=== PATIENT | female | born 1990 | race Caucasian/White ===

== ENCOUNTER → 2017-09-13 | Day surgery (SDC) | payer BC ==
[~2017-09-13] VITALS: Ht 167.6 cm; Wt 87.3 kg
[~2017-09-13] MED LIST: CHLORHEXIDINE GLUCONATE 2 % 1 PACK (2 CLOTHS) TOPICAL PRN; DEXAMETHASONE SOD PHOS 4 MG/ML VIAL IV ONE; DO NOT ADM ANY ANTICOAGULANT DRUGS PRN; ESTROGENS CONJUGATED VAG CREA 15 APPL/30 GM TUBE ONE; KETOROLAC TROMETHAMINE 30 MG/ML (IVP) VIAL IV PUSH ONE; LACTATED RINGER'S 1000 ML IV PRN; LIDOCAINE HCL 1% PF 5 ML SYRINGE OTHER ONE; MEPERIDINE HCL 25 MG/ML VIAL IV PRN; METHYLERGONOVINE MALEATE 0.2 MG/ML VIAL ONE; METOPROLOL TARTRATE 25 MG TAB PO PRN; ONDANSETRON HCL 4 MG/2 ML VIAL IV PRN; ONDANSETRON HCL 4 MG/2 ML VIAL IV PUSH ONE; OXYTOCIN 10 UNIT/ML AMP ONE; POVIDONE IODINE 5% (ANTISEPSIS KIT) 4 APPLICATIONS EACH NARE PRN; PREN29TA PO; PROPOFOL 200 MG/20 ML AMP IV ONE; SODIUM CHLORID 0.9% 500 ML IV PRN; ceFAZolin 2 GM PREMIX 50 ML IV ONE; oxyCODONE/ACETAMINOPHEN 5 MG/325 MG TAB PO PRN
[2017-09-13 11:01] LABS: AUTOMATED NEUTROPHIL # 5.4 TH/MM3 (1.8-7.7); BASOPHIL % 0.5 % (0.0-2.0); EOSINOPHIL # 0.1 TH/MM3 (0-0.4); EOSINOPHIL % 1.6 % (0.0-4.0); HEMATOCRIT 40.4 % (35.0-46.0); HEMO FLAGS DIFF FINAL; LYMPH % 32.2 % (9.0-44.0); LYMPHOCYTE # 2.9 TH/MM3 (1.0-4.8); MEAN CELL VOLUME 90.3 FL (80.0-100.0); MEAN CORPUSCULAR HEMOGLOBIN 29.3 PG (27.0-34.0); MEAN CORPUSCULAR HGB CONC 32.5 % (32.0-36.0); MONO % 6.1 % (0.0-8.0); NEUT % 59.6 % (16.0-70.0); PLATELET COUNT 227 TH/MM3 (150-450); RED BLOOD COUNT 4.47 MIL/MM3 (4.00-5.30); RED CELL DISTRIBUTION WIDTH 13.9 % (11.6-17.2)
[2017-09-13 11:06] LABS: BACTERIA, URINE RARE /hpf; BLOOD, URINE SMALL (NEG); GLUCOSE,URINE NEG (NEG); KETONE, URINE NEG (NEG); MUCUS URINE FEW /lpf (OCC); NITRITE,URINE NEG (NEG); SQUAMOUS EPITHELIAL CELL URINE 6 /hpf (0-5); URINE COLOR YELLOW (YELLW/STRAW)
[2017-09-13 11:09] LABS: COMMENT (UR) CULT NOT INDICATED; CULTURE IF INDICATED CULT NOT INDICATED
--- NOTE | 2017-09-13 12:23 | MH ---
cc: HORACIO TANNER DATE OF ADMISSION: 09/13/2017 DATE OF 1990 SCHEDULED PROCEDURE D&C. HISTORY OF PRESENT CONDITION The patient is a 26-year-old white female, 4, para 1-0-2-1 with LMP 06/10/2017 and EDC 03/21/2018, who came in at 13 weeks for a new OB and for whom the ultrasound indicated that she had a missed AB of 8 weeks 2 days sizing, suggested that the heart rate stopped a good month ago. She had not yet been having any spotting and this was a terrible surprise to her and her and she was quite devastated. It is particularly sad because after her first child in 2013 she had an ectopic in 2014 and a molar in 2016. They have just moved here from [place] and live here full-time now. Her blood type is A+. Her hemoglobin is 12.5. She is immune to [place]ese measles and chickenpox. Cultures were negative. She has had no fevers or exposures that could account for her loss, no food poisoning. She does not smoke, drink or use illicit drugs. Her first child was term and in good health and her general health is excellent. PAST MEDICAL HISTORY She has no chronic or systemic illnesses. PAST SURGICAL HISTORY She did have surgery for her ectopic removal and that tube was also removed and she also had D&C for her molar . SOCIAL HISTORY Her is an Jain Rabbi and they live in the [facility]. PHYSICAL EXAMINATION VITAL SIGNS: On physical exam her weight is 194, blood pressure is 130/72. NECK: She has no thyroid enlargement. LUNGS: Lungs are clear. HEART: Heart is regular. ABDOMEN: Benign. PELVIC: Perineum is estrogenized and cervical length on ultrasound is 3.85, crown-rump length of the embryo was 1.85 consistent with 8 weeks 2 days. Ovaries and adnexa were normal. IMPRESSION Missed AB. PLAN Plan is to proceed with D&C. Risks, benefits, expectations and alternatives have been described in detail and she is scheduled for morning. Horacio Tanner MD PPC/TLL /1:41 PM /11:52 AM
[2017-09-13 13:50] VITALS: BP 96/53; PULSE 60; RESP 20; TEMP 98; O2SAT 99
--- NOTE | 2017-09-13 14:11 | HHI.DCPOC ---
Discharge Care Plan Report Symptoms to Your Doctor -Temperature above 100.5 degrees -Redness, of incision or excessive or foul smelling drainage -Unusual pain or calf pain -Increased vaginal bleeding -Painful or difficulty urinating -Feelings of extreme sadness or anxiety after 2 weeks Goals to Promote Your Health * To prevent worsening of your condition and complications * To maintain your health at the optimal level Directions to Meet Your Goals Take your medications as prescribed Follow your dietary instruction Follow activity as directed Ensure plenty of rest for recovery Drink fluids for hydration Keep your appointments as scheduled Take your immunizations and boosters as scheduled If your symptoms worsen call your PCP, if no PCP go to Urgent Care Center or Emergency Room Smoking is Dangerous to Your Health. Avoid second hand smoke Call the 24-hour crisis hotline for domestic abuse at Katherine Mendoza MD Sep 13, 2017 14:11
--- NOTE | 2017-09-15 11:48 | MP ---
cc: KATHERINE TANNER DATE OF SURGERY: 09/13/2017 PREOPERATIVE DIAGNOSIS: Missed . POSTOPERATIVE DIAGNOSIS: Missed . OPERATION: Suction curettage. ANESTHESIA: General. SURGEON: MD Kelly. FINDINGS Moderate products of conception. PROCEDURE The patient was identified as Jennifer the circumstances and procedure reviewed. She was taken to the operating room, placed under general endotracheal anesthesia in the dorsal lithotomy position. She was prepped and draped in the usual sterile fashion and a time-out was performed. She has had 2 grams of Ancef IV. Examination under anesthesia was performed and a weighted speculum was placed. The cervix was grasped with tenaculum and a size eight curved suction curette entered into the intrauterine cavity with a significant amount of tissue obtained. Bleeding was average and a banjo curette was used at the end to confirm that the 360 degrees of the intrauterine cavity felt clean. The vaginal instrumentation was removed. She was placed in dorsal supine position, awoken and taken to the recovery room in stable condition. She is Rh positive. Katherine Tanner MD PPC/ /2:06 PM /10:40 AM
== END | disposition home or self-care (01) ==
LOC: HSDC 09:50
PROVIDERS: ATTEND Obstetrics & Gynecology
DX: O02.1 Missed abortion (principal)
CPT/HCPCS: 01965; 59820; 81001; 85025; 86850; 86900; 86901; 88305; J0690; J1100; J1885; J2210; J2405; J2590

== ENCOUNTER 2018-09-12 02:21 | Inpatient (IN) ==
[2018-09-12] MEDS ORDERED: Sod Chloride 0.9% Inj 1,000 ML IV.CONT PRN (02:37)
[2018-09-12] MEDS ORDERED: Oxytocin 30 Units/500ml Premix 30 UNITS/500 ML BAG IV.SIG ONE (02:37)
[2018-09-12] MEDS ORDERED: Naloxone Inj 0.4 MG/ML Vial IV.PUSH PRN ×2 (02:37→08:33)
[2018-09-12] MEDS ORDERED: Sodium Chlor 0.9% Inj 500 ML IV.SIG PRN (02:37)
[2018-09-12] MEDS ORDERED: Penicillin G Potassium Inj 5,000,000 UNIT in Sodium Chloride 0.9% Inj 100 ML IV.SIG ONE (02:37)
[2018-09-12] MEDS ORDERED: fentaNYL Citrate Inj 100 MCG/2 ML Ampul IV.PUSH PRN ×2 (02:37)
[2018-09-12] MEDS ORDERED: Citric Acid/Sodium Citrate Liq 30 ML UDC PO SCH (02:45)
--- NOTE | 2018-09-12 03:05 | P.HPOB ---
Patient Name: Jennifer Hernandez Date of : 89 Patient Status: Inpatient Attending Provider: Hiram Gomez Date: 09/12/18 02:46 Initialization Date: 09/12/18 02:46 History of Present Illness Service: [facility] [place] Primary Care Physician: NOT REQUIRED Dary Mendoza MD Chief Complaint: Contractions History of Present Illness: This 27 y/o female , EDC 09/11/18, EGA 40 1/7 wks presents to [facility] with c /o ctxs. She has been having ctxs since last week but they became stronger approx 12:10 AM today. She denies probs with this . She was 3-4 cm on her last exam. Today she is 5/80/-2, vtx. She will be admitted in labor. Weeks Gestation:: 40 Para: 1 : 5 Review of Systems All other systems reviewed negative except as stated in HPI PMFSH - Medical / Surgical Hx Neg / Unobtainable Medical Problems Denied: Yes - Medical History Medical History: Medical History (Last Updated 09/12/18 @ 02:56 by Dia Whitlock DO) History of molar Hx of ectopic - Surgical History Surgical History: Surgical History (Last Updated 09/12/18 @ 02:56 by Dia Whitlock DO) History of laparoscopy Hx of dilation and curettage - Social History I have reviewed the patient's Social History: Yes - Tobacco History Tobacco Use In Past 30 Days: No Smoking Status: Never smoker - Alcohol History How Often Do You Have a Drink Containing Alcohol: Never - Substance Use History Substance History: No History of Abuse - Travel History History of Recent Travel: No Recent Travel in the [place] Within the Last 8 Weeks: No Recent Travel Out of the Country Within the Last 8 Weeks: No Medications and Allergies Active Medications: Active Medications Citric Acid/Sodium Citrate (Sodium Citrate/Citric Acid Liq) 30 ml PO [facility] [facility] [facility] Stop: 09/16/18 02:44 Fentanyl Citrate (Fentanyl Inj) 50 mcg IV.PUSH Q1H PRN PRN Reason: Pain Scale 3 - 5 Fentanyl Citrate (Fentanyl Inj) 100 mcg IV.PUSH Q1H PRN PRN Reason: PAIN SCALE 6 TO 10 Lactated Ringer's (Lr 1000 Ml Inj) 1,000 mls @ 3,000 mls/hr IV.SIG UNSCH PRN PRN Reason: compromise or epidural Lactated Ringer's (Lr 1000 Ml Inj) 1,000 mls @ 125 mls/hr IV.CONT .Q8H MILEY Sodium Chloride (Ns Inj) 500 mls @ 1,000 mls/hr IV.SIG UNSCH PRN PRN Reason: SEE LABEL COMMENTS Sodium Chloride (Ns Inj) 1,000 mls @ 100 mls/hr IV.CONT .Q10H PRN PRN Reason: SEE LABEL COMMENTS Oxytocin (Pitocin 30 Units/Ns 500 Ml Premix) 30 units in 500 mls @ 999 mls/hr IV.SIG BOLUS ONE Stop: 09/12/18 03:07 Penicillin G Potassium 5,000, (000 unit/ Sodium Chloride) 100 mls @ 200 mls/hr IV.SIG ONCE ONE Stop: 09/12/18 03:06 Penicillin G Potassium 2,500, (000 unit/ Sodium Chloride) 100 mls @ 200 mls/hr IV.SIG Q4H MILEY Lidocaine HCl (Xylocaine 1% Inj) 0.1 ml I-DERMAL PRN PRN PRN Reason: For IV start Stop: 09/15/18 02:36 Lidocaine HCl (Xylocaine 1% Inj) 10 ml INFILTRATN PRN PRN PRN Reason: For episiotomy repair Stop: 09/14/18 02:36 Mineral Oil (Muri-Lube Oil) 10 ml TOPICAL PRN PRN PRN Reason: PRN perineal massage Mineral Oil (Muri-Lube Oil) 10 ml TOPICAL PRN PRN PRN Reason: PRN perineal massage Naloxone HCl (Narcan Inj) 0.1 mg IV.PUSH Q2M PRN PRN Reason: for opiate reversal Allergies Allergy/AdvReac Type Severity Reaction Status Date / Time No Known Allergies Allergy Unverified 09/13/17 10:13 Home Medications Medication Instructions Recorded Confirmed Type 09/12/18 History Exam Vital signs: Vital Signs 09/12/18 02:36 Respiratory Rate 16 Narrative: GENERAL: Well-nourished, well-developed patient. SKIN: Warm and dry. HEAD: Normocephalic and atraumatic. EYES: No scleral icterus. No injection or drainage. ENT: No nasal drainage noted. Mucous membranes pink. Airway patent. NECK: Supple, trachea midline. No JVD. CARDIOVASCULAR: Regular rate and rhythm without murmurs, gallops, or rubs. RESPIRATORY: Breath sounds equal bilaterally. No accessory muscle use. BREASTS: Bilateral exam showed no masses , no retractions, no nipple discharge. ABDOMEN/GI: Abdomen soft, non-tender, bowel sounds present, no rebound, no guarding Gravid to [40] weeks size GENITOURINARY: External Genitalia: intact and normal in appearance Cervix: Dilatation: [5] Effacement: [80] Station: [-2] Presentation: [vtx] Membranes: [intact] Uterine Contractions: [every 2-3 min] FHT's: Category: [1] Baseline: [140] Reactive: [Yes] Variability: [moderate] Decels: [No] +Accels EXTREMITIES: No cyanosis or edema. BACK: Nontender without obvious deformity. No CVA tenderness. NEUROLOGICAL: Awake and alert. Motor and sensory grossly within normal limits. Five out of 5 muscle strength in all muscle groups. Normal speech. Results - Labs Group B Strep: Positive Assessment and Plan - Diagnosis (1) Active labor at term Status: Acute (2) Uterine contractions during Code(s): O62.2 - Other uterine inertia Status: Acute (3) Group B streptococcal infection during Code(s): O98.819 - Other maternal infectious and parasitic diseases complicating , unspecified trimester; B95.1 - Streptococcus, group B, as the cause of diseases classified elsewhere Status: Acute (4) 40 weeks gestation of Code(s): Z3A.40 - 40 weeks gestation of Status: Acute - Plan Admit pt in labor. Penicillin for GBS Positive. Message left for Dr. Gomez who is hone operator for Dr. Mendoza. Discharge Plan - Discharge Disposition Patient Disposition: ED Admit(ED Internal Use Only) - Physicians Team ED Provider: Dia Whitlock Primary Care Provider: NOT REQUIRED,
[2018-09-12 03:07] LABS: Baso # (Auto) 0.1 th/mm3 (0.0-0.2); Baso % (Auto) 0.4 % (0.0-2.0); Eos # (Auto) 0.1 th/mm3 (0.0-0.4); Eos % (Auto) 0.5 % (0.0-4.0); Hematocrit 39.6 % (35.0-46.0); Hemoglobin 13.6 gm/dL (11.6-15.3); Lymph # (Auto) 2.8 th/mm3 (1.0-4.8); Mean Corpuscular HGB Conc 34.3 % (32.0-36.0); Mean Corpuscular Volume 90.5 fL (80.0-100.0); Mean Platelet Volume 9.9 fL (7.0-11.0); Mono % (Auto) 6.9 % (0.0-8.0); Neut % (Auto) 72.2 % (16.0-70.0); Platelet Count 175 th/mm3 (150-450); Red Blood Count 4.38 mil/mm3 (4.00-5.30); White Blood Count 13.8 th/mm3 (4.0-11.0)
[2018-09-12 04:16] LABS: Amorphous Sediment,Urine Rare /hpf; Bilirubin,Urine Negative (Negative); Clarity,Urine Cloudy (Clear); Color,Urine Amber (Yellw/Straw); Glucose,Urine (UA) Negative (Negative); Leukocyte Esterase,Urine Trace (Negative); Mucus,Urine Few /lpf (Occasional); Nitrite,Urine Negative (Negative); Specific Gravity,Urine 1.021 (1.002-1.035); Squamous Epithelial Cell,Urine 3 /hpf (0-5)
[2018-09-12] MEDS ORDERED: Penicillin G Potassium Inj 2,500,000 UNIT in Sodium Chlor 0.9% Inj 100 ML IV.SIG SCH (06:45)
[2018-09-12] MEDS ORDERED: Bisacodyl 10 MG Supp RECTAL PRN (08:33)
[2018-09-12] MEDS ORDERED: Benzocaine 20% Top Spray 60 ML Can TOPICAL PRN (08:33)
[2018-09-12] MEDS ORDERED: Witch Hazel 50%/Glyderin 12.5% 40 Pad Jar RECTAL PRN (08:33)
[2018-09-12] MEDS ORDERED: Acetaminophen 325 MG Tablet PO PRN (08:33)
[2018-09-12] MEDS ORDERED: Oxytocin 30 Units/500ml Premix 30 UNITS/500 ML BAG IV.CONT PRN (08:33)
--- NOTE | 2018-09-12 08:33 | P.OBDELI ---
Weeks Gestation: 40 Patient Started Active Labor: Yes Medical Induction of Labor: No Artificial Rupture of Membrane: Yes Artificial ROM Date: 09/12/18 Anesthesia: None Episiotomy: none Vaginal Delivery: Normal Presentation: Occiput anterior Nuchal Cord: None Delayed Cord Clamping (45 sec): Yes Placenta: Spontaneous delivery, Intact, 3 vessel cord Laceration: None Estimated blood loss (mL): 200 : Male Male A Delivery Date: 09/12/18 Infant Delivery Time: 08:00 score (1 min): 9 score (5 min): 9
[2018-09-12] MEDS: Senna/Docusate Sodium 8.6/50 MG Tablet PO SCH ×2 (12:52→22:00)
[2018-09-12] MEDS ORDERED: Measles/Mumps/Rubella Vaccine Inj 0.5 ML Vial SQ ONE (16:00)
[2018-09-12] MEDS ORDERED: Diphtheria/Tetanus/Pertussis Vaccine Inj 0.5 ML Syringe IM ONE (16:00)
[2018-09-12] MEDS ORDERED: Zolpidem Tartrate 5 MG Tablet PO PRN (21:00)
--- NOTE | 2018-09-13 07:54 | P.PNOB ---
Subjective Post day: 2 Interval history: Doing well Pain is controlled Baby is good Tolerating diet well Objective Vital Signs/I&O: Vital Signs 09/12/18 07:52 09/12/18 08:01 09/12/18 08:02 Temperature 98.2 F Pulse Rate 126 H 87 Respiratory Rate 18 Blood Pressure 114/56 L 119/57 L 09/12/18 08:16 09/12/18 08:22 09/12/18 08:31 Temperature Pulse Rate 76 71 Respiratory Rate 18 Blood Pressure 113/62 110/61 09/12/18 09:16 09/12/18 20:05 Temperature 98.0 F Pulse Rate 72 75 Respiratory Rate 20 Blood Pressure 119/66 Result Diagrams: 09/12/18 02:50 Objective Remarks: GENERAL: Well-nourished, well-developed patient. CARDIOVASCULAR: Regular rate and rhythm without murmurs, gallops, or rubs. RESPIRATORY: Breath sounds equal bilaterally. No accessory muscle use. ABDOMEN/GI: Abdomen soft, non-tender. Fundus: Firm, non-tender at umbilicus. GENITOURINARY: Light to moderate bleeding. EXTREMITIES: No cyanosis or edema, non-tender, without signs of DVT. Medications and IVs: Active Medications Acetaminophen (Tylenol) 650 mg PO Q4H PRN PRN Reason: PAIN SCALE 1 TO 2 Al Hydroxide/Mg Hydroxide (Milk Of Magnesia Liq) 30 ml PO Q12H PRN PRN Reason: Mild Constipation Benzocaine (Americaine 20% [place]) 1 spray TOPICAL Q4H PRN PRN Reason: For Perineum Discomfort Bisacodyl (Dulcolax Supp) 10 mg RECTAL DAILY PRN PRN Reason: SEVERE CONSITIPATION Citric Acid/Sodium Citrate (Sodium Citrate/Citric Acid Liq) 30 ml PO [employer] WORK[employer] [facility] Stop: 09/16/18 02:44 Fentanyl Citrate (Fentanyl Inj) 50 mcg IV.PUSH Q1H PRN PRN Reason: Pain Scale 3 - 5 Fentanyl Citrate (Fentanyl Inj) 100 mcg IV.PUSH Q1H PRN PRN Reason: PAIN SCALE 6 TO 10 Lactated Ringer's (Lr 1000 Ml Inj) 1,000 mls @ 3,000 mls/hr IV.SIG UNSCH PRN PRN Reason: compromise or epidural Lactated Ringer's (Lr 1000 Ml Inj) 1,000 mls @ 125 mls/hr IV.CONT .Q8H MILEY Last Admin: 09/12/18 02:52 Dose: 125 mls/hr Sodium Chloride (Ns Inj) 500 mls @ 1,000 mls/hr IV.SIG UNSCH PRN PRN Reason: SEE LABEL COMMENTS Sodium Chloride (Ns Inj) 1,000 mls @ 100 mls/hr IV.CONT .Q10H PRN PRN Reason: SEE LABEL COMMENTS Penicillin G Potassium 2,500, (000 unit/ Sodium Chloride) 100 mls @ 200 mls/hr IV.SIG Q4H MILEY Last Admin: 09/12/18 06:48 Dose: 200 mls/hr Oxytocin (Pitocin 30 Units/Ns 500 Ml Premix) 30 units in 500 mls @ 100 mls/hr IV.CONT UNSCH PRN PRN Reason: Heavy bleeding Ibuprofen (Motrin) 800 mg PO Q8H PRN PRN Reason: For Cramping Last Admin: 09/12/18 19:01 Dose: 800 mg Lactulose (Lactulose Liq) 30 ml PO DAILY PRN PRN Reason: SEVERE CONSITIPATION Lidocaine HCl (Xylocaine 1% Inj) 0.1 ml I-DERMAL PRN PRN PRN Reason: For IV start Stop: 09/15/18 02:36 Lidocaine HCl (Xylocaine 1% Inj) 10 ml INFILTRATN PRN PRN PRN Reason: For episiotomy repair Stop: 09/14/18 02:36 Mineral Oil (Muri-Lube Oil) 10 ml TOPICAL PRN PRN PRN Reason: PRN perineal massage Mineral Oil (Muri-Lube Oil) 10 ml TOPICAL PRN PRN PRN Reason: PRN perineal massage Naloxone HCl (Narcan Inj) 0.1 mg IV.PUSH Q2M PRN PRN Reason: for opiate reversal Naloxone HCl (Narcan Inj) 0.1 mg IV.PUSH Q2M PRN PRN Reason: for opiate reversal Ondansetron HCl (Zofran Inj) 4 mg IV.PUSH Q5H PRN PRN Reason: NAUSEA OR VOMITING Last Admin: 09/12/18 04:06 Dose: 4 mg Ondansetron HCl (Zofran Odt) 4 mg PO Q6H PRN PRN Reason: NAUSEA OR VOMITING Senna/Docusate Sodium (Marisol-Colace) 1 tab PO BID [facility] Last Admin: 09/12/18 22:00 Dose: Not Given Sennosides (Senokot) 17.2 mg PO Q12H PRN PRN Reason: Moderate Constipation Sodium Chloride (Ns Flush) 2 ml IV.FLUSH BID [facility] Last Admin: 09/12/18 22:00 Dose: Not Given Sodium Chloride (Ns Flush) 2 ml IV.FLUSH PRN PRN PRN Reason: FLUSH AFTER USING IV ACCESS Witch Aidee/Glycerin (Tucks Pads) 1 applicatio RECTAL QID PRN PRN Reason: HEMORRHOIDS Zolpidem Tartrate (Ambien) 5 mg PO HS PRN PRN Reason: SLEEP Assessment and Plan - Plan Discharge Planning: PPD #2 D/C home
[2018-09-13] MEDS: Senna/Docusate Sodium 8.6/50 MG Tablet PO SCH (08:01)
[2018-09-13 10:03] VITALS: BP 101/58; PULSE 72; RESP 18; TEMP 98.1
== END 2018-09-13 16:15 | disposition home or self-care (01) ==
LOC: HOBED 02:21 → H2E 02:43 → H1EA 09:54
PROVIDERS: ADMIT Obstetrics & Gynecology; ATTEND Obstetrics & Gynecology